=== PATIENT | female | born 1980 | race Caucasian/White ===

== ENCOUNTER 2017-07-06 00:38 | Inpatient (IN) | payer BC ==
[~2017-07-06] VITALS: Ht 172.7 cm; Wt 77.7 kg
[2017-07-06] VITALS (20 sets, daily range): BP systolic 115–143; BP diastolic 73–99; PULSE 59–103; TEMP 97.9–98.2
[~2017-07-06 00:38] MED LIST: MOTRIN 600600 MG/TAB PO; PERCOCET 325 MG1 TA2 PO; PRENATAL1 TA2 PO
[2017-07-06] MEDS ORDERED: PRENATAL1 TA7 PO (01:12)
[2017-07-06 02:00] LABS: BASO % 0.4 % (0.0-2.0); EOS # 0.1 (0.0-0.7); EOS % 0.5 % (0-4.0); GRAN % 66.1 % (42.2-75.2); HEMATOCRIT 40.4 % (37.0-47.0); HEMOGLOBIN 13.9 g/dl (12.5-16.0); LYMPH # 2.6 (1.2-3.4); MEAN CELL VOLUME 91 fl (80.0-100.0); MEAN CORPUSCULAR HEMOGLOBIN 31 pg (27.0-31.0); MEAN CORPUSCULAR HGB CONC 34 g/dl (33.0-37.0); MEAN PLATELET VOLUME 12.7 fl (7.4-10.4); MONO # 0.4 (0.1-0.6); MONO % 4.6 % (1.7-9.3); PLATELET COUNT 116 K/mm3 (130-400); RED BLOOD COUNT 4.45 M/mm3 (4.10-5.30)
[2017-07-06 02:11] LABS: ALBUMIN 3.2 gm/dL (3.5-5.0); BILIRUBIN,TOTAL 0.6 mg/dL (0.0-1.0); CALCIUM 8.9 mg/dL (8.4-10.2); CREATININE, serum 0.81 mg/dL (0.52-1.25); POTASSIUM 4.2 mmol/L (3.4-5.0); TOTAL PROTEIN 6.6 gm/dL (6.4-8.2)
[2017-07-07 08:00] VITALS: BP 119/76; PULSE 66; TEMP 98.2
[2017-07-07 20:00] VITALS: BP 113/69; PULSE 65; TEMP 97.6
[2017-07-08 10:30] VITALS: BP 143/84; PULSE 89; TEMP 98
[2017-07-08] MEDS ORDERED: IBU800 M1 PO (11:28)
[2017-07-08] MEDS ORDERED: PERCOCET 325 MG1 TA2 PO (11:29)
[2017-07-08 12:00] VITALS: BP 122/75; PULSE 77; TEMP 98.4
== END 2017-07-08 13:50 | disposition home or self-care (01) | DRG 765 ==
LOC: LDRO 00:38 → LDR 01:00 → OB 01:00
PROVIDERS: Student in an Organized Health Care Education/Training Program
PROC: 10D00Z1 Extraction of Products of Conception, Low, Open Approach (ICD-10-PCS; principal; 2017-07-06)
DX: O60.14X1 Preterm labor third trimester with preterm delivery third trimester, fetus 1 (principal); O36.0131 Maternal care for anti-D [Rh] antibodies, third trimester, fetus 1; O36.013 Maternal care for anti-D [Rh] antibodies, third trimester; O60.14X2 Preterm labor third trimester with preterm delivery third trimester, fetus 2; O30.043 Twin pregnancy, dichorionic/diamniotic, third trimester; O34.211 Maternal care for low transverse scar from previous cesarean delivery; N85.8 Other specified noninflammatory disorders of uterus; O32.1XX1 Maternal care for breech presentation, fetus 1; Z3A.36 36 weeks gestation of pregnancy; Z37.2 Twins, both liveborn
CPT/HCPCS: J0171; J0690; J1885; J2175; J2370; J2405; J2590; J3010; J7120

== ENCOUNTER → 2017-07-22 | Outpatient (CLI) | payer BC ==
[~2017-07-22] MED LIST changes: +IBU800 M1 PO; +PRENATAL1 TA7 PO
== END ==
LOC: LAC 10:40
DX: Z39.1 Encounter for care and examination of lactating mother (principal); Z71.89 Other specified counseling

== ENCOUNTER 2021-10-04 05:40 | Day surgery (SDC) | payer BC ==
[2021-10-04] VITALS (7 sets, daily range): BP systolic 116–128; BP diastolic 74–82; PULSE 80–90; TEMP 98.1–99.2
[~2021-10-04] VITALS: Ht 172.7 cm; Wt 59.0 kg
[2021-10-04] MEDS ORDERED: PROBIOTIC BLEN1 EACH PO (06:18)
[2021-10-04] MEDS ORDERED: WOMEN'S DAILY1 TAB PO (06:18)
[2021-10-04] MEDS ORDERED: THE MEDICINE S200 M2 PO (06:19)
[2021-10-04] MEDS ORDERED: NORCO 325 MG-51 TAB PO (10:12)
[2021-10-04] MEDS ORDERED: MOTRIN 600600 MG/TAB PO (10:12)
--- NOTE | 2021-10-04 11:05 | NUR ---
PT TO BAY 8 PER CART FROM PACU. PT RESTING COMFORTABLY AND TOLERATING ICE CHIPS AND WATER. PT DENIES ANY ADDITIONAL NEEDS AT THIS TIME. CALL LIGHT WITHIN REACH. WILL CONTINUE TO MONITOR.
--- NOTE | 2021-10-04 11:20 | NUR ---
PT CONTINUES TO REST COMFORTABLY. DENIES ANY NEEDS AT THIS TIME.
--- NOTE | 2021-10-04 11:35 | NUR ---
PT SLEEPING. DENIES ANY NEEDS.
--- NOTE | 2021-10-04 11:50 | NUR ---
PT TOLERATING WATER AND MUFFIN WITHOUT DIFFICULTY. PT DENIES ANY ADDITIONAL NEEDS.
--- NOTE | 2021-10-04 12:05 | NUR ---
PT DENIES ANY PAIN OR DISCOMFORT. PT STATES SHE IS READY FOR DISCHARGE.
--- NOTE | 2021-10-04 12:10 | NUR ---
IV DC'D AT THIS TIME. PT TOLERATED WELL.
--- NOTE | 2021-10-04 12:20 | NUR ---
DISCHARGE EDUCATION COMPLETED WITH PT AND HER . PT AND VERBALIZED UNDERSTANDING OF HOME AND FOLLOW UP CARE. ALL QUESTIONS ANSWERED. DISCHARGE PAPERWORK GIVEN TO PT.
--- NOTE | 2021-10-04 12:30 | NUR ---
PT OFF UNIT PER WHEELCHAIR. PT DISCHARGE TO HOME WITH PER PERSONAL VEHICLE.
== END 2021-10-04 12:30 | disposition home or self-care (01) ==
LOC: SDCO 05:40
DX: K43.9 Ventral hernia without obstruction or gangrene (principal); K42.9 Umbilical hernia without obstruction or gangrene; M62.08 Separation of muscle (nontraumatic), other site
CPT/HCPCS: C1781; J0690; J1100; J2405; J2704; J2795; J3010; J7120